=== PATIENT | female | born 1940 | race Two or more races ===

== ENCOUNTER 2017-07-22 16:54 | Inpatient (IN) | payer MEDICAID, MEDICARE, OTHER ==
[~2017-07-22] VITALS: Ht 160 cm; Wt 74.4 kg
--- NOTE | 2017-07-22 17:37 | NUR ---
FACE SHEET ARRIVED WITH PATIENT WITHOUT MEDICAL RECORDS AND MEDICATION.
[2017-07-22 19:04] LABS: BASOPHILS % (AUTO) 0.4 % (0.0-2.0); EOSINOPHILS # (AUTO) 0.1 K/uL (0.0-0.7); EOSINOPHILS % (AUTO) 1.2 % (0.0-7.0); HEMATOCRIT 38.8 % (31.2-41.9); HEMOGLOBIN 13.1 g/dL (10.9-14.3); LYMPHOCYTES % (AUTO) 20.6 % (20.5-51.5); MEAN CORPUSCULAR HEMOGLOBIN 32.8 uug (24.7-32.8); MEAN CORPUSCULAR HGB CONC 34 g/dL (32.3-35.6); MEAN CORPUSCULAR VOLUME 97.2 fL (75.5-95.3); MONOCYTES # (AUTO) 0.4 K/uL (2.0-10.0); MONOCYTES % (AUTO) 9.1 % (0.0-11.0); NEUTROPHILS # (AUTO) 3.3 K/uL (1.8-8.9); NEUTROPHILS % (AUTO) 68.7 % (38.5-71.5); PLATELET COUNT (AUTO) 197 K/uL (179-408); WHITE BLOOD COUNT (AUTO) 4.8 K/uL (3.8-11.8)
[2017-07-22 19:07] LABS: ABG SITE LEFT RADIAL; VENT MODE ROOM AIR
[2017-07-22 19:10] LABS: ABG BASE EXCESS 1.6 mmol/L; ABG HCO3 25.4 mmol/L; ABG PCO2 37.4 mmHg (35.0-45.0); ABG PO2 90.9 mmHg (75.0-100.0); COHb 1.6 % (0.5-1.5); MetHb 0.4 % (0.0-1.5); O2Hb 95.7 % (94.0-97.0)
[2017-07-22 19:25] LABS: CARBON DIOXIDE 28 mmol/L (21-32); CHLORIDE 105 mmol/L (98-107); CREATININE 0.6 mg/dL (0.6-1.3); GLUCOSE 122 mg/dL (74-106); POTASSIUM 3.6 mmol/L (3.5-5.1); UREA NITROGEN, BLOOD 18 mg/dL (7-18)
[2017-07-22 19:30] LABS: ALANINE AMINOTRANSFERASE 18 U/L (14-59); ALKALINE PHOSPHATASE 63 U/L (50-136); ASPARTATE AMINOTRANSFERASE 11 U/L (15-37); BILIRUBIN,DIRECT 0.1 mg/dL (0.0-0.2); BILIRUBIN,TOTAL 0.4 mg/dL (0.2-1.0); TOTAL PROTEIN, SERUM 7.6 g/dL (6.4-8.2)
--- NOTE | 2017-07-22 20:59 | NUR ---
Pt. admitted to TELE, under care of Elle Burk Belongs List completed
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
[2017-07-22 21:39] VITALS: BP 217/84
[2017-07-22 22:00] VITALS: BP 185/89
--- NOTE | 2017-07-22 22:00 | NUR ---
Patient remains hyperverbal, talking to herself. BP 185/89. METAL SPRAYER notified.
[2017-07-22] MEDS ORDERED: ALBUTEROL SULFATE 1.25 MG/3 ML NEBU NEB PRN (22:15)
[2017-07-22] MEDS ORDERED: ONDANSETRON 4 MG/2 ML VIAL IV PRN (22:15)
[2017-07-22] MEDS ORDERED: Z GUARD REMEDY PASTE 57 GM TUBE TOP PRN (22:15)
[2017-07-22] MEDS ORDERED: HYDROCODONE/APAP 5-325MG TABLET PO PRN (22:15)
[2017-07-22] MEDS ORDERED: ZOLPIDEM 5 MG TABLET PO PRN (22:15)
[2017-07-22] MEDS ORDERED: ENOXAPARIN SODIUM 40 MG/0.4 ML DISP.SYRIN SQ SCH ×2 (22:15)
[2017-07-22] MEDS ORDERED: ACETAMINOPHEN 325 MG TABLET PO PRN (22:15)
[2017-07-22] MEDS ORDERED: IPRATROPIUM BROMIDE 0.5 MG/2.5 ML NEBU NEB PRN (22:15)
[2017-07-22] MEDS ORDERED: MAGNESIUM HYDROXIDE 30 ML LIQUID UDC PO PRN (22:15)
[2017-07-22 22:57] VITALS: BP 98/45
[2017-07-22] MEDS: AMLODIPINE 5 MG TABLET PO SCH ×2 (23:00→23:44)
--- NOTE | 2017-07-22 23:00 | NUR ---
Patient asleep, no signs of distress. Latest BP 98/45. Sinus rhythm on the monitor, HR-63 bpm. BP meds held for now.
[2017-07-22] MEDS ORDERED: ENOXAPARIN SODIUM 40 MG/0.4 ML DISP.SYRIN SQ ONE (23:45)
[2017-07-22] MEDS ORDERED: AMLODIPINE 5 MG TABLET ONE (23:58)
[2017-07-23 00:06] VITALS: BP 143/55
[2017-07-23 05:00] VITALS: BP 188/77
[2017-07-23 06:31] LABS: BASOPHILS % (AUTO) 0.4 % (0.0-2.0); EOSINOPHILS # (AUTO) 0.1 K/uL (0.0-0.7); HEMATOCRIT 38.1 % (31.2-41.9); LYMPHOCYTES # (AUTO) 0.8 K/uL (20.0-40.0); LYMPHOCYTES % (AUTO) 14.1 % (20.5-51.5); MEAN CORPUSCULAR HEMOGLOBIN 33.3 uug (24.7-32.8); MEAN CORPUSCULAR HGB CONC 34 g/dL (32.3-35.6); MEAN CORPUSCULAR VOLUME 97.4 fL (75.5-95.3); MONOCYTES # (AUTO) 0.5 K/uL (2.0-10.0); MONOCYTES % (AUTO) 7.9 % (0.0-11.0); NEUTROPHILS # (AUTO) 4.5 K/uL (1.8-8.9); NEUTROPHILS % (AUTO) 76.6 % (38.5-71.5); PLATELET COUNT (AUTO) 207 K/uL (179-408); RED BLOOD CELL COUNT(AUTO) 3.92 MIL/uL (3.63-4.92); WHITE BLOOD COUNT (AUTO) 5.8 K/uL (3.8-11.8)
[2017-07-23 06:54] LABS: CARBON DIOXIDE 27 mmol/L (21-32); CHLORIDE 105 mmol/L (98-107); CHOLESTEROL 193 mg/dL (<200); CREATININE 0.5 mg/dL (0.6-1.3); GLUCOSE 87 mg/dL (74-106); HDL CHOLESTEROL 82 mg/dL (40-60); MAGNESIUM 1.8 mg/dL (1.8-2.4); PHOSPHOROUS 3.6 mg/dL (2.5-4.9); POTASSIUM 3.5 mmol/L (3.5-5.1); TRIGLYCERIDES 47 MG/DL (30-150); UREA NITROGEN, BLOOD 14 mg/dL (7-18)
--- NOTE | 2017-07-23 07:00 | NUR ---
Slept at intervals, BP elevated when awake. No acute resp distress. O2Sat 98% RA. Sinus rhythm/sinus beverly on the monitor.
--- NOTE | 2017-07-23 07:40 | NUR ---
pt received in bed awake.talking to her self ,pt is confused breakfast served
[2017-07-23] MEDS: AMLODIPINE 5 MG TABLET PO SCH (08:03)
[2017-07-23 11:13] VITALS: BP 118/64
[2017-07-23 15:14] VITALS: BP 120/56
--- NOTE | 2017-07-23 19:30 | NUR ---
Received patient sitting comfortably in bed. A&O x 2. No acute distress noted. Is able to answer questions and make needs known but gets distracted easily. Safety initiated. Call light within reach. Will continue to monitor.
[2017-07-23 19:47] VITALS: BP 147/56
[2017-07-23] MEDS: ATORVASTATIN 20 MG TABLET PO SCH (20:05)
[2017-07-23] MEDS: ENOXAPARIN SODIUM 40 MG/0.4 ML DISP.SYRIN SQ SCH ×2 (20:07→21:00)
[2017-07-24 05:30] VITALS: BP 165/77
--- NOTE | 2017-07-24 05:44 | NUR ---
Patient slept intermittently t/o shift. No acute distress noted. Patient remains confuse. Safety and comfort measures maintained t/o shift. Vital signs stable. All meds given as ordered. All needs met.
[2017-07-24] MEDS: hydrALAZINE HCL 10 MG TABLET PO PRN (05:50)
--- NOTE | 2017-07-24 05:57 | NUR ---
Patient's B/P running high. 165/77. PRN meds given as ordered. Will continue to monitor.
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
--- NOTE | 2017-07-24 08:00 | NUR ---
pt received in bed awake.talking to her self ,pt is confused breakfast served
[2017-07-24] MEDS: AMLODIPINE 5 MG TABLET PO SCH (08:27)
[2017-07-24 11:15] VITALS: BP 132/60
[2017-07-24 15:15] VITALS: BP 132/76
[2017-07-24] MEDS ORDERED: ATOR10TA PO (16:24)
[2017-07-24] MEDS ORDERED: AMLO10TA2 PO (16:24)
[2017-07-24] MEDS ORDERED: VALP250S17 PO (16:25)
[2017-07-24] MEDS ORDERED: MAGN400O6 PO (16:31)
[2017-07-24] MEDS ORDERED: LISI-607 PO (16:31)
[2017-07-24] MEDS ORDERED: PSYL1PAC8 PO (16:31)
[2017-07-24] MEDS ORDERED: DOCU250C14 PO (16:31)
[2017-07-24] MEDS ORDERED: MAGN400T6 PO (16:31)
[2017-07-24] MEDS ORDERED: RISP1SOL5 PO (16:33)
[2017-07-24] MEDS ORDERED: LEVO25TA9 PO (16:34)
[2017-07-24] MEDS ORDERED: MULT1TAB11 PO (16:34)
[2017-07-24] MEDS ORDERED: CHOL100099 PO (16:37)
[2017-07-24] MEDS ORDERED: CHOL10002 PO (16:37)
[2017-07-24] MEDS ORDERED: MAGNESIUM HYDROXIDE 30 ML LIQUID UDC PO PRN (17:15)
[2017-07-24] MEDS ORDERED: CHOLECALCIFEROL 10000 UNIT PO SCH (17:15)
[2017-07-24] MEDS ORDERED: Medication Not On Formulary EA (Multivitamins W-Minerals (Multivitamin With Minerals) 1 PO SCH (17:15)
[2017-07-24] MEDS ORDERED: Medication Not On Formulary EA (Psyllium Husk (with Sugar) (Metamucil Packet) 3.4 GM) PO SCH (17:15)
--- NOTE | 2017-07-24 17:21 | NUR ---
Patient remains hyperverbal, talking to herself.walking in her room .eating her dinner.
[2017-07-24] MEDS: LISINOPRIL 5 MG TABLET PO SCH (18:00)
[2017-07-24 20:00] VITALS: BP 128/41
[2017-07-24] MEDS: ATORVASTATIN 20 MG TABLET PO SCH (21:00)
[2017-07-24] MEDS ORDERED: VALPROIC ACID 250 MG/5 ML LIQUID UDC PO SCH (21:00)
[2017-07-24] MEDS ORDERED: ATORVASTATIN 10 MG TABLET PO SCH (21:00)
[2017-07-24] MEDS ORDERED: MAGNESIUM OXIDE 400 MG TABLET PO SCH (21:00)
[2017-07-24] MEDS: ENOXAPARIN SODIUM 40 MG/0.4 ML DISP.SYRIN SQ SCH (21:00)
[2017-07-24] MEDS ORDERED: risperiDONE 1 MG/ML UDC PO SCH (21:00)
--- NOTE | 2017-07-24 21:40 | NUR ---
PT REFUSED ALL HS MEDS STATING THEY WERE POISON , THREW THEM ON FLOOR. WILL CONTINUE TO MONITOR PT.AND MAINTAIN HORLY ROUNDS. Addendum: 07/25/17 at 0810 by CARROLL DICKERSON RN PT REFUSED ALL HER HS MEDS STATING THEY WERE POISON , THREW THEM ON FLOOR. WILL CONTINUE TO MONITOR PT.AND MAINTAIN HORLY ROUNDS.
[2017-07-25 06:27] VITALS: BP 178/81
[2017-07-25] MEDS ORDERED: LEVOTHYROXINE SODIUM 25 MCG TABLET PO SCH (07:00)
[2017-07-25] MEDS: hydrALAZINE HCL 10 MG TABLET PO PRN (07:12)
--- NOTE | 2017-07-25 07:15 | NUR ---
BEDSIDE REPORT GIVEN TO CARMELO GÓMEZ FOR CONTINUATION OF CARE.
--- NOTE | 2017-07-25 07:30 | NUR ---
pt received in bed awake.talking to her self ,pt is confused breakfast served
[2017-07-25] MEDS: LISINOPRIL 5 MG TABLET PO SCH (08:07)
[2017-07-25] MEDS: PSYLLIUM SEED PACKET PO SCH ×2 (08:15→16:22)
[2017-07-25] MEDS ORDERED: MULTIVIT, IRON, MIN NO. 8, FA TABLET PO SCH (09:00)
[2017-07-25] MEDS ORDERED: AMLODIPINE 10 MG TABLET PO SCH (09:00)
[2017-07-25] MEDS ORDERED: DOCUSATE SODIUM 250 MG CAPSULE PO SCH (09:00)
[2017-07-25 12:00] VITALS: BP 144/67
[2017-07-25 16:00] VITALS: BP 152/59
--- NOTE | 2017-07-25 18:55 | NUR ---
D/C ORDERS RECEIVED NOTED AND CARRIED OUT.D/C INSTRUCTION GIVEN TO THE [facility].D/C HEPLOCK PER MD ORDERS.PT LEFT THE FACILITY VIA AMBULANCES IN STABLE CONDITION.
[2017-07-26] MEDS ORDERED: CHOLECALCIFEROL 1,000 UNIT TABLET PO SCH (09:00)
[2017-07-28] MEDS ORDERED: CHOLECALCIFEROL 1,000 UNIT TABLET PO SCH (09:00)
== END 2017-07-25 19:00 | DRG 206 ==
LOC: ER 16:56 → TELE 21:01 → MED 07-23 10:00
PROVIDERS: ADMIT Nurse Practitioner Acute Care; ATTEND Nurse Practitioner Acute Care
DX: J70.5 Respiratory conditions due to smoke inhalation (principal); D58.2 Other hemoglobinopathies; E11.9 Type 2 diabetes mellitus without complications; I11.9 Hypertensive heart disease without heart failure; X01.1XXA Exposure to smoke in uncontrolled fire, not in building or structure, initial encounter; Y92.129 Unspecified place in nursing home as the place of occurrence of the external cause; E03.9 Hypothyroidism, unspecified; E78.5 Hyperlipidemia, unspecified; F25.0 Schizoaffective disorder, bipolar type; F03.90 Unspecified dementia, unspecified severity, without behavioral disturbance, psychotic disturbance, mood disturbance, and anxiety
CPT/HCPCS: 36415; 36600; 70030-TC; 71010; 83605; 83735; 84100; 85025; 85730; 87040; 93005; A4663; J1650